=== PATIENT | female | born 1985 | race African-American/Black ===

== ENCOUNTER 2024-10-20 02:23 | Day surgery (SDC) | payer OTHER, SELFPAY ==
[2024-10-12 09:20] VITALS: BMI 34.5
--- NOTE | 2024-10-12 09:50 | PC.NURSE ---
Report to the Outpatient Waiting Room, entrance under the green pavilion located off [facility], at 0930 on 10-20-24. Planned Procedure Time: 1130.? Time changes happen often and if your time is changed the preop area will call you the afternoon before. - You and your visitor will be asked to self-screen and do not enter if you have any COVID symptoms. Please call surgeon if you need to reschedule. - A mask is optional within the hospital at this time. Patients may have clear liquids (water, carbonated beverages, clear teas, apple juice) until 3 hours prior to surgery with a maximum of 20 ounces. 0830 - No food from midnight until time of surgery and no smoking. This includes no chewing gum, candy or mints. - Infants may have breast milk until 4 hours before surgery, infant formula 6 hours prior to surgery. - Children will be allowed to drink immediately following surgery.? If applicable, please bring a bottle or sippy cup to assist with drinking. Juice, water, soda, and popsicles are readily available.? For infants on formula, please bring formula the day of surgery.? Pacifiers are allowed. Take only the following medications with a SIP of water on the morning of surgery: None (takes all meds at night) DO NOT STOP ANY OF YOUR OTHER PRESCRIPTION MEDICATIONS PRIOR TO SURGERY EXCEPT THE FOLLOWING Medications to discontinue per physician: vitamins and supplements Date to take last dose: 10-17-24 Please no make-up, nail estonian, hairspray, perfume, deodorant, or body powder the day of surgery.? No jewelry (including any body piercings) or valuables the day of surgery, leave them at home.? Please take a shower or bath the night before, or the morning of, surgery with an antibacterial soap.? Wear comfortable, loose fitting clothing.? Children are encouraged to wear pajamas. - Jewelry must be removed prior to entering the operating room.? Rings and piercings that are not removed may be cut off. - The hospital will not accept responsibility for valuables.? - Please leave all valuables, including medications, at home the day of surgery. If you are going home after surgery, a licensed cross country truck driver must drive you home.? - NO public transportation without another adult if you receive anesthesia. - We recommend that an adult stay with you for 24 hours following discharge. - We also recommend that you do not drive, make important decision, drink alcoholic beverages, or take any drugs that were not prescribed by your health care provider for at least 24 hours after your discharge time. For Pediatric surgeries, we recommend two adults accompany the child home. Follow any additional instructions given to you from your surgeon. Telephone instructions given to Yamile Cason and asked if any additional questions and then verbalized understanding. Patient advised to call surgeon office or pre surgery nurse liaison [phone] if any additional questions.
--- NOTE | 2024-10-20 08:06 | WPDANESEPPF ---
Anes - Initial Pre Proc Eval Procedure: Operation Date: 10/20/24 10:30 Proposed Procedures p Hysteroscopy with Intrauterine Device Removal, Insertion Intrauterine Device - Jhony Cifuentes MD Date/Time: 10/20/24 08:06 Surgeon: Jhony Cifuentes MD Pre Op Diagnosis: IUD not visualized Patient Data Age: 38 Gender: F Height: 1.6 m Weight: 88.45 kg Allergies Allergy/AdvReac Type Severity Reaction Status Date / Time NSAIDS (Non-Steroidal Allergy Mild Other Verified 10/20/24 09:01 Anti-Inflamma Home Medications ?Medication ?Instructions ?Recorded ?Confirmed ?Type amitriptyline 50 mg tablet 50 mg PO DAILY prscribed by NEURO 12/17/23 10/12/24 History clascoterone 1 % topical cream 1 applic topical DAILY 12/17/23 10/12/24 History (Winlevi) docusate sodium 100 mg capsule 100 mg PO DAILY 12/17/23 10/12/24 History (Colace) levonorgestrel (Mirena) 1 device intrauterine ONCE 12/17/23 10/12/24 History propranolol 80 mg tablet 80 mg PO DAILY prescribed by NEURO 12/17/23 10/12/24 History cholecalciferol (vitamin D3) 1,250 1,250 mcg PO WEEKLY #12 caps 09/05/24 10/12/24 Rx mcg (50,000 unit) capsule omeprazole 40 mg capsule,delayed 40 mg PO HS 10/12/24 10/12/24 History release Results Review: All pre-operative results and documents have been reviewed as part of the pre-operative evaluation. [facility] Past Medical History Medical History Hypertension Hyperlipidemia Headache GERD (gastroesophageal reflux disease) History of frequent headaches Acid reflux Surgical History Surgical History [place] teeth extracted (~2009) Hx of LASIK (~2010) H/O abdominoplasty (~07/2022) Family History Family History Father Hypertension Family history of diabetes mellitus in first degree relative Mother Hypertension Grandparent Family history of lung cancer Hypertension Family history of heart disease in male family member before age 55 Diabetes mellitus Mother Hypertension Thyroid disorder Father Hypertension Heart disease Diabetes mellitus Grandparent Hypertension Heart disease Cerebrovascular accident Other Family history of congestive heart failure Family history of coronary artery disease Social History Social History Smoking status: Never smoker Second hand tobacco smoke exposure: No Alcohol intake: current Alcohol use details: Socially Substance use: never Substance use type: does not use Do You Feel Safe in your Home?: Yes Lack of Transportation: No Lack of Food: Never True Current Housing: I Have Housing Concerned About Future Housing: No Difficulty Paying Gas/Electric Bills: No Difficulty Paying for Meds: No Currently Unemployed: No Education: Master's Degree or Higher Difficulty w/ Childcare or Family Care: No Living arrangements: with family 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 Gender identity (if verbalized by the patient): Female Sexual Orientation (if Verbalized by the Patient): Straight or Heterosexual Spiritual care concerns: No Anes - Eval Final PreProcedure Day of Procedure 10/20/24 08:06 Patient weight: obese Heart: regular rate and rhythm Lungs: clear to auscultation Airway: Mallampati scale class II Neurological: alert and oriented Last oral intake: >/= 8 hours ASA classification: III Emergent: no Anesthetic plan: proceed Anesthesia type and monitoring: general GIVS and standard monitoring Results Review: All pre-operative results and documents have been reviewed as part of the pre-operative evaluation. Informed Consent: The patient's anesthetic plan and its attendant risks and benefits were discussed with the patient/family/POA. Questions were solicited and answers provided to the satisfaction of the patient/family/POA.
[2024-10-20 08:17] VITALS: BP 131/76; PULSE 95; RESP 16; TEMP 36.5; O2SAT 100
[2024-10-20] MEDS: LACTATED RINGERS 1,000 ML 30 ML IV CONT (08:50)
[2024-10-20] MEDS: ACETAMINOPHEN 500 MG TABLET 1000 MG PO (08:55)
[2024-10-20 09:01] VITALS: BMI 35.3
[2024-10-20 09:04] LABS: BEDSIDEPREGUCG Negative (Negative)
--- NOTE | 2024-10-20 10:03 | P.HP_ITS ---
H&P: HPI History of Present Illness Date/Time: 10/20/24 10:03 Chief Complaint: Misplaced IUD Narrative: Patient with IUD and unable to remove if office. Hysteroscopic removal recommended. She was informed of risk and benefits and agrees with removal hysteroscopically. She also wants another IUD inserted at that time. Review of Systems Review of Systems: All systems reviewed & are unremarkable except as noted in HPI and below Cardiovascular: Cardiovascular: Reports no additional cardiovascular complaints, Denies chest pain and Denies dyspnea Respiratory: Respiratory: Reports no additional respiratory complaints and Den ies dyspnea Gastrointestinal: Gastrointestinal: Reports abdominal pain, Denies change in bowel habits, Denies diarrhea, Denies nausea and Denies vomiting Genitourinary: Genitourinary: Reports pelvic pain Musculoskeletal: Musculoskeletal: Reports back pain Integumentary/Breasts: Skin/Breast: Reports system reviewed and no additional complaints, except as docu Neurologic: Reports system reviewed and no additional complaints, except as documented PMFSH Past Medical History Medical History Hypertension Hyperlipidemia Headache GERD (gastroesophageal reflux disease) History of frequent headaches Acid reflux Surgical History Surgical History [place] teeth extracted (~2009) Hx of LASIK (~2010) H/O abdominoplasty (~07/2022) Family History Family History Father Hypertension Family history of diabetes mellitus in first degree relative Mother Hypertension Grandparent Family history of lung cancer Hypertension Family history of heart disease in male family member before age 55 Diabetes mellitus Mother Hypertension Thyroid disorder Father Hypertension Heart disease Diabetes mellitus Grandparent Hypertension Heart disease Cerebrovascular accident Other Family history of congestive heart failure Family history of coronary artery disease Social History Social History Smoking status: Never smoker Second hand tobacco smoke exposure: No Alcohol intake: current Alcohol use details: Socially Substance use: never Substance use type: does not use Do You Feel Safe in your Home?: Yes Lack of Transportation: No Lack of Food: Never True Current Housing: I Have Housing Concerned About Future Housing: No Difficulty Paying Gas/Electric Bills: No Difficulty Paying for Meds: No Currently Unemployed: No Education: Master's Degree or Higher Difficulty w/ Childcare or Family Care: No Living arrangements: with family 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 Gender identity (if verbalized by the patient): Female Sexual Orientation (if Verbalized by the Patient): Straight or Heterosexual Spiritual care concerns: No Meds Home Medications and Allergies Home Medications ?Medication ?Instructions ?Recorded ?Confirmed ?Type amitriptyline 50 mg tablet 50 mg PO DAILY prscribed by NEURO 12/17/23 10/12/24 History clascoterone 1 % topical cream 1 applic topical DAILY 12/17/23 10/12/24 History (Winlevi) docusate sodium 100 mg capsule 100 mg PO DAILY 12/17/23 10/12/24 History (Colace) levonorgestrel (Mirena) 1 device intrauterine ONCE 12/17/23 10/12/24 History propranolol 80 mg tablet 80 mg PO DAILY prescribed by NEURO 12/17/23 10/12/24 History cholecalciferol (vitamin D3) 1,250 1,250 mcg PO WEEKLY #12 caps 09/05/24 10/12/24 Rx mcg (50,000 unit) capsule omeprazole 40 mg capsule,delayed 40 mg PO HS 10/12/24 10/12/24 History release Allergies Allergy/AdvReac Type Severity Reaction Status Date / Time NSAIDS (Non-Steroidal Allergy Mild Other Verified 10/20/24 09:01 Anti-Inflamma Vital Signs Vital Signs - 24 hr 10/20/24 08:17 Temperature 97.7 F Pulse Rate 95 Respiratory Rate 16 Blood Pressure 131/76 Pulse Oximetry 100 Oxygen Delivery Room Air Exam Const: Orientation/consciousness: oriented to person and oriented to place HENMT: Head: normal to inspection Eyes: General: appearance normal, both eyes and all related structures Resp: Effort & Inspection: normal respiratory effort Auscultation: clear to auscultation bilaterally Cardio: Rate: regular rate Rhythm: regular rhythm GI: Inspection: normal to inspection GI Palp: No Rebound tenderness present Neuro: General: oriented to person and oriented to place Cognition (Neuro): normal cognition Extrem: General: normal to inspection Psych: Appearance: grossly normal and well kempt Assessment and Plan Assessment and plan (1) Retained intrauterine contraceptive device (IUD): Code(s): T83.39XA - Other mechanical complication of intrauterine contraceptive device, initial encounter Status: Acute Assessment and Plan: Will proceed with hysteroscopic removal of IUD and insertion of another IUD. (2) Encounter for IUD insertion: Code(s): Z30.430 - Encounter for insertion of intrauterine contraceptive device Status: Acute
--- NOTE | 2024-10-20 10:11 | WPDHPUPDATE1 ---
History and Physical Update Update Date/Time: 10/20/24 10:11 History and Physical has been reviewed, including an updated exam of the patient. There are NO changes in the patient's condition. Risks, benefits, and alternatives have been discussed and questions answered. Patient agrees to proceed with procedure.
[2024-10-20] MEDS: ceFAZolin 2 GM/D5W 50 ML 2 GM/50 ML BAG IVPB (10:34)
[2024-10-20] MEDS: LIDOCAINE 1% LOCAL INJ 20 ML VIAL 10 ML INFILTRATE (10:54)
[2024-10-20 10:59] VITALS: BP 128/85; PULSE 86; RESP 14; O2SAT 100
--- NOTE | 2024-10-20 11:23 | W.PM.PROC2 ---
Procedure Note - Detailed Date of Procedure 10/20/24 Pre-op Diagnosis Displaced IUD and request IUD insertion Post-op Diagnosis Same Procedure Performed Mirena IUD retrieval and Mirena IUD insertion Surgeon Jhony Cifuentes MD Anesthesia MAC and Local Indications IUD unable to be removed in office Findings Uterus lodged with some scar tissue mildly embedded mid position of IUD uterus sound to 7.5 cm normal cavity after IUD removed [id number] Description of Procedure After Informed consent was obtained she was taken to operating room. Adequate IV sedation was administered she was placed in high lithotomy position she was prepped and draped in sterile fashion attention was turned to the vagina speculum inserted. A tooth tenaculum placed on anterior lip of the cervix 10 cc of 1% lidocaine was injected at the cervical vaginal interface at 2,5,8 and 10 position. The cervix was dilated to 4 position uterus was sound to 7 and have. The hysteroscope was inserted there is small cannulization at the anterior muscle of the uterus and then the cavity was visualized the IUD was noted to be mildly embedded at the mid position of it and mild scar tissue at the anterior uterus the end of the IUD was grabs with the hysteroscopic grasper and the IUD was removed intact string was also attached to it. The new Mirena was inserted into uterine cavity and the hysteroscope was inserted to upper cervical canal to assure the IUD was in the cavity which it was. he string was cut about 3 cm from entrance. Single-tooth tenaculum removed hemostasis noted speculum removed patient tolerated procedure well Estimated Blood Loss 5 Drains No Packing No Pathology None sent Complications No immediate complications Condition Stable Disposition Observation [facility] Billing Surgery - Charge Forward: Surgery Billing
[2024-10-20] MEDS: fentaNYL CITRATE INJ (*CRX) 100 MCG/2 ML VIAL 25 MCG IV PUSH ×2 (11:28→11:31)
[2024-10-20 11:30] VITALS: BP 131/75; PULSE 83
[2024-10-20 12:00] VITALS: BP 124/76; PULSE 86; RESP 14; O2SAT 96
[2024-10-20] MEDS: oxyCODONE HCL (*CRX) 5 MG TAB IR PO (12:20)
[2024-10-20 12:30] VITALS: BP 132/81; PULSE 81; RESP 14
[2024-10-20 13:00] VITALS: BP 131/86; PULSE 77; RESP 14
== END 2024-10-20 13:11 | disposition home or self-care (01) ==
PROVIDERS: PCP Nurse Practitioner; Visit Provider Obstetrics & Gynecology
PROC: 0U5B8ZZ Destruction of Endometrium, Via Natural or Artificial Opening Endoscopic (ICD-10-PCS; CPT 58563; principal; 2024-10-20 10:30)
DX: T83.32XA Displacement of intrauterine contraceptive device, initial encounter (principal); Y84.8 Other medical procedures as the cause of abnormal reaction of the patient, or of later complication, without mention of misadventure at the time of the procedure; Z30.430 Encounter for insertion of intrauterine contraceptive device
CPT/HCPCS: 58562; 58300; A9270; J0690; J1100; J2003; J2250; J2405; J2704; J3010; J7030; J7120